=== PATIENT | male | born 1970 | race Caucasian/White ===

== ENCOUNTER → 2018-08-21 | Day surgery (SDC) | payer BC ==
--- NOTE | 2018-08-23 16:39 | PATH ---
Cytology Non-Gynecological Report Patient Name: BAIRON JOY [facility]. Rec. #: [id number] /Age/Gender: 1970 (Age: 48) / M Account: [id number] Location: RADIOLOGY INTER Taken: 08/21/2018 Received: 08/21/2018 Reported: 08/23/2018 Physicians: Jonna Batista M.D. Specimen(s) Received THYROID FNA Clinical History Left thyroid nodule, 2.34 x 0.70 x 1.13 Final Diagnosis THYROID, LEFT, FINE NEEDLE ASPIRATION: SATISFACTORY FOR EVALUATION. B[place] CLASS II: BENIGN. CYTOLOGIC FINDINGS ARE CONSISTENT WITH A BENIGN FOLLICULAR NODULE WITH ABUNDANT METAPLASTIC CHANGE. SMALL FOLLICULAR CELLS, REACTIVE/METAPLASTIC CHANGES, AND ABUNDANT COLLOID PRESENT. Electronically Signed Valencia Simon M.D. Gross Description Received are eight direct smears, four of which are air-dried and Diff-Quik stained, and four of which are alcohol fixed and Pap stained. Also received is 20 ml of bloody formalin from which one cellblock is prepared.
== END | disposition home or self-care (01) ==
LOC: JRADIR 09:32
PROVIDERS: ATTEND Family Medicine
PROC: 0G9G3ZX Drainage of Left Thyroid Gland Lobe, Percutaneous Approach, Diagnostic (ICD-10-PCS; principal; 2018-08-21)
DX: E04.1 Nontoxic single thyroid nodule (principal)
CPT/HCPCS: 76942; 88173; 88305-TC